=== PATIENT | female | born 1950 | race Hispanic/Latino ===

== ENCOUNTER 2021-10-22 09:22 | Outpatient (CLI) | payer MEDICARE ==
[2021-10-22 10:06] LABS: Blood Urea Nitrogen 8 mg/dL (7-17)
--- NOTE | 2021-10-22 11:49 | Cat Scan Report ---
CT angio chest INDICATION / CLINICAL INFORMATION: I77.810 DILATED AORTIC ROOT. TECHNIQUE: Axial CT images were obtained through the chest after injection of IV contrast. 3 plane MIP and/or 3D reconstructions were produced. All CT scans at this location are performed using CT dose reduction f or ALARA by means of automated exposure control. COMPARISON: None available. FINDINGS: AORTA: Mild atherosclerosis. The mid ascending aorta measures approximately 4.2 cm. No annuloaortic ectasia. Descending thoracic aorta measures 3.2 cm. HEART: No significant abnormality. MEDIASTINUM / RICARDO: No significant abnormality. LUNGS: Lungs are clear No pleural effusion. No pneumothorax. ADDITIONAL FINDINGS: None. UPPER ABDOMEN: Bilateral simple appearing renal cysts. 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 Remote right posterior fif th rib fracture. C5-C6 ACDF. No acute osseous abnormality. IMPRESSION: 1. Mild dilation of ascending aorta measuring 4.2 cm. Signer Name: Gibran Oneil MD Signed: 10/22/2021 11:45 AM Workstation Name: [id number]
== END 2021-10-22 09:23 | disposition home or self-care (01) ==
LOC: CT 09:22
PROVIDERS: ATTEND Internal Medicine Cardiovascular Disease
DX: I77.810 Thoracic aortic ectasia (principal); I70.0 Atherosclerosis of aorta; N28.1 Cyst of kidney, acquired; M47.814 Spondylosis without myelopathy or radiculopathy, thoracic region
CPT/HCPCS: 36415; 71275; 82565; 84520; Q9967